=== PATIENT | female | born 1950 | race African-American/Black ===

== ENCOUNTER 2017-04-04 06:01 | Day surgery (SDC) | payer OTHER ==
[2017-04-04] VITALS (8 sets, daily range): BP systolic 99–136; BP diastolic 62–87
[~2017-04-04] VITALS: Ht 170.2 cm; Wt 64.9 kg
[~2017-04-04 06:01] MED LIST: ASPIRIN81 MG ORAL; BIOTIN5000 MCG PO; CALCIUM + D3 E1 EACH PO; Cyclopentolate 1% Opth Sol 2ml ONE; ESTRADIOL1 M1 PO; OMEGA 3 1,0001 EACH PO; Phenylephrine 2.5% Op 2ml Soln ONE; SIMVASTATIN10 MG ORAL; VIVISCAL PO
[2017-04-04] MEDS: Phenylephrine 2.5% Op 2ml Soln LEFT EYE SCH ×3 (06:31→06:48)
[2017-04-04] MEDS: Cyclopentolate 1% Opth Sol 2ml LEFT EYE SCH ×3 (06:31→06:48)
[2017-04-04] MEDS ORDERED: Dexamethasone 4mg/ml vial ONE (07:13)
[2017-04-04] MEDS ORDERED: Tetracaine 0.5% Opth 4ml Soln ONE (07:13)
[2017-04-04] MEDS ORDERED: Maxitrol Opth Oint 3.5gm ONE (07:13)
[2017-04-04] MEDS ORDERED: Kenalog-40 1ml Vial ONE (07:13)
[2017-04-04] MEDS ORDERED: Pred Forte 1% Opth Susp 1ml ONE (07:13)
[2017-04-04] MEDS ORDERED: BSS 500ml btl ONE (07:13)
[2017-04-04] MEDS ORDERED: Kenalog-10 5ml Inj ONE (07:14)
[2017-04-04] MEDS ORDERED: BSS 15ml BTL ONE (07:14)
[2017-04-04] MEDS ORDERED: Bupivacaine 0.75% 30ml vial INJ ONE (07:14)
[2017-04-04] MEDS ORDERED: Povidone-Iodine 5% opth solution ONE (07:14)
[2017-04-04] MEDS ORDERED: Lidocaine 2% MPF 5ml Vial INJ ONE (07:14)
[2017-04-04] MEDS ORDERED: Goniosol 2.5% Opth Soln - 15ml ONE (07:14)
[2017-04-04] MEDS ORDERED: EPINEPHrine 1mg/1ml Amp ONE (07:14)
[2017-04-04] MEDS ORDERED: Vancomycin 1gm inj IVPB ONE (07:14)
[2017-04-04] MEDS ORDERED: fentaNYL 100 mcg/2 mL IV PRN (07:15)
--- NOTE | 2017-04-04 07:15 | Anethesia Preoperative Eval ---
Anesthesia Pre-op PMH/ROS General Date of Evaluation: Apr 04, 2017 Time of Evaluation: 07:14 Anesthesiologist: racquel ASA Score: ASA 2 Mallampati Score Class I : Soft palate, uvula, fauces, pillars visible Class II: Soft palate, uvula, fauces visible Class III: Soft palate, base of uvula visible Class IV: Only hard plate visible Mallampati Classification: Class II Surgeon: hazel Surgical Procedure: vitrectomy Family History: no anesthesia problems Allergies: Coded Allergies: ADHESIVE TAPE (Verified Allergy, Severe, Rash, 03/31/17) Uncoded Allergies: food coloring (Allergy, Unknown, 03/31/17) Medications: see eMAR Past Medical History Cardiovascular: Denies: HTN, CAD, OR, valve dz, arrhythmia, other Pulmonary: Denies: asthma, COPD, TADEO, other Gastrointestinal/Genitourinary: Denies: GERD, CRI, ESRD, other Neurologic/Psychiatric: Denies: dementia, CVA, depression/anxiety, TIA, other Endocrine: Denies: DM, hypothyroidism, steroids, other HEENT: Reports: cataract (R) Hematology/Immune: Reports: anemia Musculoskeletal/Integumentary: Reports: OA Anesthesia Pre-op Phys. Exam Physician Exam Last Vital Signs Date Time Temp Pulse Resp B/P (MAP) Pulse Ox O2 Delivery O2 Flow Rate FiO2 04/04/17 06:39 97.6 73 18 136/87 96 Room Air Constitutional: NAD Neurologic: CN 2-12 intact Cardiovascular: RRR Respiratory: CTA Gastrointestinal: S/NT/ND Airway Exam Mallampati Score: Class II MO: full ROM: full Dentures: no upper, no lower Anesthesia Pre-op A/P Studies Pre-op Studies: EKG - sr Risk Assessment & Plan Plan: mac Status Change Before Surgery: No Pre-Antibiotics Drug: none MALLY MUNIZ TRAINER Apr 04, 2017 07:15
[2017-04-04] MEDS ORDERED: LR 1000ml ONE (07:30)
[2017-04-04] MEDS ORDERED: Propofol 200mg/20ml IV ONE (07:30)
[2017-04-04] MEDS ORDERED: Midazolam 2mg/2ml Inj ONE (07:30)
[2017-04-04] MEDS ORDERED: Sterile Water Irrig 1000ml IRRIG ONE (07:30)
[2017-04-04] MEDS ORDERED: Lidocaine 1% MPF 10mg/ml 5ml ONE (07:30)
[2017-04-04] MEDS ORDERED: NS Irrig 1000ml ONE (07:30)
[2017-04-04] MEDS ORDERED: fentaNYL 100 mcg/2 mL IV ONE (07:30)
--- NOTE | 2017-04-04 07:30 | Pre-Procedure Note/Attestation ---
Pre-Procedure Note/Attestation Complete Prior to Procedure Planned Procedure: left Procedure Narrative: ppv/ilm peel/afx/gas os Indications for Procedure Pre-Operative Diagnosis: macular hole os Attestation I attest that I discussed the nature of the procedure; its benefits; risks and complications; and alternatives (and the risks and benefits of such alternatives ), prior to the procedure, with the patient (or the patient's legal indirect sales representative). I attest that, if there was a reasonable possibility of needing a blood transfusion, the patient (or the patient's legal indirect sales representative) was given the [facility] standardized written summary, pursuant to the Drew Wilmer Blood Safety Act ([place] Health and Safety Code # 1645, as amended). I attest that I re-evaluated the patient just prior to the surgery and that there has been no change in the patient's H&P, except as documented below: RITCHIE DINH M.D. Apr 04, 2017 07:30
[2017-04-04] MEDS ORDERED: Triamcinolone 40mg/ml PF Vial ONE (07:48)
[2017-04-04] MEDS ORDERED: Indocyanine Green 25mg Inj INJ ONE (08:00)
--- NOTE | 2017-04-04 09:08 | Operative Note - PDOC ---
Operative Note Operative Note Pre-op Diagnosis: macular hole os Procedure: ppv/ilm peel/afx/sf6 gas os Post-op Diagnosis: same as pre-op Operative Findings: consistent w/pre-op dx studies Surgeon: kristi Park Attendant: none Anesthesia: local Specimen: none Complications: none Condition: stable Estimated Blood Loss: none Drains: none Implant(s) used?: No Indications for Procedure vision loss os RITCHIE DINH M.D. Apr 04, 2017 09:08
--- NOTE | 2017-04-04 09:14 | Immediate Post-Op Evaluation ---
Immediate Post-Op Evalulation Immediate Post-Op Evalulation Procedure: vitrectomy left eye Date of Evaluation: Apr 04, 2017 Time of Evaluation: 09:05 IV Fluids: 500 Blood Pressure Systolic: 112 Blood Pressure Diastolic: 75 Pulse Rate: 61 Respiratory Rate: 14 O2 Sat by Pulse Oximetry: 99 Pain Score (1-10): 0 Nausea: No Vomiting: No Complications none Patient Status: awake, reacts Hydration Status: adequate Drug: none MALLY MUNIZ CRNA Apr 04, 2017 09:14
[2017-04-04] MEDS ORDERED: Norco 5mg/325mg tab ORAL PRN (09:15)
--- NOTE | 2017-04-04 10:47 | 48 Hour Post Anesthesia Eval ---
Post Anesthesia Evaluation Procedure: vitrectomy left eye Date of Evaluation: Apr 04, 2017 Time of Evaluation: 10:47 Blood Pressure Systolic: 107 0: 71 Pulse Rate: 57 Respiratory Rate: 14 O2 Sat by Pulse Oximetry: 100 Airway: patent Nausea: No Vomiting: No Hydration Status: adequate Cardiopulmonary Status: stable Mental Status/LOC: patient returned to baseline Post-Anesthesia Complications: none Follow-up care needed: N/A MALLY MUNIZ CRNA Apr 04, 2017 10:47
--- NOTE | 2017-04-06 05:00 | Operative Note - Dictated ---
DATE OF OPERATION: 04/04/2017 PREOPERATIVE DIAGNOSIS: Full thickness macular hole, left eye. POSTOPERATIVE DIAGNOSIS: Full thickness macular hole, left eye. PROCEDURES: Pars plana vitrectomy, ILM peel, air-fluid exchange, SF6 gas, left eye. PRIMARY SURGEON: Edd Moore M.D. DARKROOM WORKER: None. ANESTHESIA: Monitored anesthesia care with retrobulbar injection. ESTIMATED BLOOD LOSS: None. COMPLICATIONS: None. INDICATIONS: The patient had a full thickness macular hole with vision loss. After benefits, alternatives, and risks were discussed, an informed consent was signed. DESCRIPTION OF PROCEDURE: The patient was brought to the operating theatre and identified. The right eye received a retrobulbar block using the usual mixture of Marcaine and lidocaine using a retrobulbar needle under intravenous sedation. The right eye was prepped and draped in the usual sterile fashion with a lid speculum placed and surgical pause was repeated. A #23-gauge valved trocar/cannula was placed in the inferotemporal quadrant at a distance of 3.5 mm posterior to the limbus in an oblique incision pattern. The infusion line was attached and observed and turned on. A supratemporal and supranasal cannulas were placed in a similar oblique fashion. The light pipe and vitrectomy cutter were placed into the eye and the Markr visualization system was brought into view. A core vitrectomy was performed. Diluted Triesence was then placed into eye to stain the posterior hyaloid. I then used the vitrectomy cutter on the aspiration mode to engage the hyaloid and to peel the hyaloid off of the retina. Additional vitrectomy was performed including peripheral vitrectomy. Next, I placed ICG, which was diluted on the posterior pole and allowed this to remain for 20 seconds. Next, using a contact lens for visualization, a brush was used to lift the flap of ILM and then ILM forceps was used to complete an ILM peel. Next, additional vitrectomy was performed to remove any loose fragments. A 360-degree scleral depressed exam was performed and there were no retina breaks noted. A complete air fluid exchange was then performed. The instruments were removed from the eye. A 24% SF6 gas was diluted and injected through the infusion line and allowed to vent through the supratemporal cannula. Next, all cannulas were removed. The supranasal cannula appeared to be leaking, so the conjunctiva was opened and the sclerotomy was closed with 7-0 Vicryl and overlying conjunctiva closed with 6-0 plain gut. The other sclerotomies appeared watertight and the eye was holding pressure of approximately 15, which was a desired palpated pressure. Subconjunctival antibiotic and dexamethasone were then injected. The lid speculum and drape were removed. Ocular area cleaned and atropine drop and Maxitrol ointment were placed on the ocular surface. A patch and shield were fixed over the closed lid with tape. The patient was taken to the recovery area in good spirits and in no pain. She was placed in the facedown position. Gas precautions were reviewed very carefully and a gas wrist band was placed. There were no complications during this case. Edd Moore M.D. DR: [email or web address] JOB#: [id number] CC:
== END 2017-04-04 10:15 | disposition home or self-care (01) ==
LOC: SUR 06:01
DX: H35.342 Macular cyst, hole, or pseudohole, left eye (principal); M19.90 Unspecified osteoarthritis, unspecified site; Z91.040 Latex allergy status; E78.5 Hyperlipidemia, unspecified; M17.12 Unilateral primary osteoarthritis, left knee; Z79.82 Long term (current) use of aspirin; Z90.710 Acquired absence of both cervix and uterus; Z80.42 Family history of malignant neoplasm of prostate; Z80.3 Family history of malignant neoplasm of breast; Z80.0 Family history of malignant neoplasm of digestive organs; Z80.41 Family history of malignant neoplasm of ovary; Z80.8 Family history of malignant neoplasm of other organs or systems; Z83.3 Family history of diabetes mellitus; Z84.1 Family history of disorders of kidney and ureter; Z82.49 Family history of ischemic heart disease and other diseases of the circulatory system; Z87.891 Personal history of nicotine dependence
CPT/HCPCS: 67025; 67042; J0171; J1100; J2250; J2704; J3010; J3300; J3370; J3470; J3490; J7120; 94003; 94150